=== PATIENT | female | born 1960 | race Caucasian/White ===

== ENCOUNTER 2022-05-19 10:11 | Emergency (ER) | payer SELFPAY ==
[~2022-05-19] VITALS: Ht 162.6 cm; Wt 74.8 kg
[2022-05-19 10:17] VITALS: BP 132/80
--- NOTE | 2022-05-19 10:21 | NUR ---
Patient does not wish to proceed with medical care recommended by dr rodriguez. Patient given information related to possible complications, up to and including , which could occur as a result of leaving hospital at this time. Patient verbalizes understanding of risks involved leaving against medical advice. Patient has signed AMA form.
== END 2022-05-19 10:21 | disposition left against medical advice (07) ==
LOC: MED 10:11
DX: F10.129 Alcohol abuse with intoxication, unspecified (principal); Y90.9 Presence of alcohol in blood, level not specified
CPT/HCPCS: 99283

== ENCOUNTER 2022-05-24 09:16 | Emergency (ER) | payer SELFPAY ==
[~2022-05-24] VITALS: Ht 157.5 cm; Wt 74.8 kg
[2022-05-24 09:37] VITALS: BP 131/70
--- NOTE | 2022-05-24 09:37 | NUR ---
PT PLACED ON WC WITH SEATBELT
[2022-05-24] MEDS ORDERED: ACET-2619 PO (10:05)
--- NOTE | 2022-05-24 10:42 | NUR ---
PT'S WOUND CLEANED WITH WARM WATER AND 4X4 GUAZE PADS, DRESSED WITH BANDAID
--- NOTE | 2022-05-24 11:02 | NUR ---
Patient discharged with v/s stable. Written and verbal after care instructions ABOUT ACUTE INTOXICATION given and explained. Patient alert, oriented and verbalized understanding of instructions. Ambulatory with steady gait. All questions addressed prior to discharge. ID band removed. Patient advised to follow up with PMD. Rx of TYLENOL given. Patient educated on indication of medication including possible reaction and side effects. Opportunity to ask questions provided and answered.
--- NOTE | 2022-05-24 11:06 | NUR ---
Patient discharged with v/s stable.PT DC WITH DAUGHTER FOR SAFE DC HOME. Written and verbal after care instructions given and explained. Patient verbalized understanding. Ambulatory with steady gait. All questions addressed prior to discharge. Advised to follow up with PMD.
== END 2022-05-24 11:02 | disposition home or self-care (01) ==
LOC: MED 09:16
DX: S09.90XA Unspecified injury of head, initial encounter (principal); I10 Essential (primary) hypertension; F10.129 Alcohol abuse with intoxication, unspecified; Z79.899 Other long term (current) drug therapy; Y90.9 Presence of alcohol in blood, level not specified; W18.30XA Fall on same level, unspecified, initial encounter; Y93.89 Activity, other specified; Y92.89 Other specified places as the place of occurrence of the external cause; Y99.8 Other external cause status
CPT/HCPCS: 70450; 99284